=== PATIENT | female | born 1985 | race Caucasian/White ===

== ENCOUNTER 2016-11-13 23:19 | Emergency (ER) | payer SELFPAY ==
[~2016-11-13] VITALS: Ht 162.6 cm; Wt 145.6 kg
[~2016-11-13 23:19] MED LIST: CIPR500T94 PO; HYDR-971 PO; PROM25TA10 PO
[2016-11-13 23:28] VITALS: BP 142/66
[2016-11-13] MEDS ORDERED: LIDOCAINE 1% / SOD BICARB 8.4% 20 ML VIAL. IJ ONE ×2 (23:35→23:45)
--- NOTE | 2016-11-14 00:05 | PHYS DOC ---
Past Medical History Past Medical History: Other Additional Past Medical Histor: borderline anemic Past Surgical History: Cholecystectomy, , Tubal ligation Additional Information: nonsmoker Alcohol Use: None Drug Use: None Adult General Chief Complaint Chief Complaint: LACERATION/AVULSION HPI HPI Patient is a 31 year old female who presents with left hand laceration just prior to arrival. She was using scissors to do crafting when the scissors dropped. She reached down to catch the scissors and they cut her hand. Her tetanus immunization is up to date. She does not have a PCP. Review of Systems Review of Systems Constitutional: Denies fever or chills. [] Musculoskeletal: Denies back pain or joint pain. Reports left hand pain. Integument: Denies rash or skin lesions. Reports left hand laceration. Neurologic: Denies focal weakness or sensory changes. [] Current Medications Current Medications Current Medications Medications (Trade) Dose Ordered Sig/Loretta Start Time Stop Time Status Last Admin Dose Admin Lidocaine/Sodium Bicarbonate (Buffered Lidocaine 1%) 20 ml STK-MED ONCE 11/13/16 23:35 11/13/16 23:36 DC Allergies Allergies Allergies Coded Allergies Type Severity Reaction Last Updated Verified No Known Drug Allergies 01/19/15 No Physical Exam Physical Exam Constitutional: Well developed, well nourished, no acute distress, non-toxic appearance. [] HENT: Normocephalic, atraumatic, oropharynx moist. [] Eyes: PERRLA, EOMI, conjunctiva normal, no discharge. [] Skin: Warm, dry, no erythema, no rash. There is a 3cm laceration to the left thenar eminence of the left hand palmar surface. Extremities: Left hand thenar eminence tenderness, ROM intact, no edema. Less than 2 second capillary refill distally. Light touch sensation intact distally. Neurologic: Alert and oriented X 3, normal motor function, normal sensory function, no focal deficits noted. [] Psychologic: Affect normal, judgement normal, mood normal. [] Current Patient Data Vital Signs Vital Signs Date Time Temp Pulse Resp B/P Pulse Ox O2 Delivery O2 Flow Rate FiO2 11/13/16 23:28 98.0 88 18 96 Room Air 98.0 EKG EKG [] Radiology/Procedures Radiology/Procedures [] Course & Med Decision Making Course & Med Decision Making Pertinent Labs and Imaging studies reviewed. (See chart for details) Patient presents with a 3 cm laceration to the left hand thenar eminence on the palmar surface. The wound was anesthetized with 1% buffered lidocaine. The wound was explored for foreign bodies and none were identified. There was no tendon laceration. The wound was cleaned using chlorhexidine scrub and copiously irrigated using normal saline. Wound edges were well approximated using 6 simple interrupted sutures using 5-0 Nylon. The patient tolerated the procedure well and bleeding was controlled. A sterile dressing was applied. Dragon Disclaimer Dragon Disclaimer This electronic medical record was generated, in whole or in part, using a voice recognition dictation system. Departure Departure Impression: Primary Impression: Hand laceration Disposition: HOME, SELF-CARE Condition: IMPROVED Referrals: NO PCP (PCP) Patient Instructions: Sutured Wound Care, [id number] Additional Instructions: Your wound was closed with nonabsorbable sutures. The sutures may get wet but do not submerge the wound in water. Please clean the wound with soap and water. Do not use alcohol or peroxide, as they will delay the wound healing. Please keep the wound covered with antibiotic ointment and a bandage. Please follow up with a primary care provider in 10 days to have the sutures removed. Return to the emergency department if you have any new or concerning symptoms. Problem Qualifiers Primary Impression: Hand laceration Encounter type: initial encounter Laterality: left Qualified Code: S61.412A - Laceration without foreign body of left hand, initial encounter MONY JACOBO Nov 14, 2016 00:05
== END 2016-11-14 00:10 | disposition home or self-care (01) ==
LOC: ER 23:19
DX: S61.412A Laceration without foreign body of left hand, initial encounter (principal); W27.2XXA Contact with scissors, initial encounter; Y93.89 Activity, other specified; Y99.8 Other external cause status; Y92.89 Other specified places as the place of occurrence of the external cause
CPT/HCPCS: 12002; 99283-25

== ENCOUNTER 2017-01-08 11:53 | Emergency (ER) | payer SELFPAY ==
[~2017-01-08] VITALS: Ht 162.6 cm; Wt 146.5 kg
[2017-01-08 11:59] VITALS: BP 138/66
[2017-01-08] MEDS ORDERED: CEPH500T PO (12:36)
[2017-01-08] MEDS ORDERED: PRED20TA PO (12:36)
--- NOTE | 2017-01-08 12:37 | PHYS DOC ---
Past Medical History Past Medical History: Other Additional Past Medical Histor: borderline anemic Past Surgical History: Cholecystectomy, , Tubal ligation Alcohol Use: None Drug Use: None Adult General Chief Complaint Chief Complaint: SKIN RASH/ABSCESS [facility] HPI Patient is a 31 year old female presents to the emergency department with a history of rash for the last week. Patient states she has tried mask, hydrogen peroxide, oat meal baths, baking soda without relief. Patient states she now has two sores in the hair line of the left face. Patient states tetanus immunization is up to date. She denies fever, chills, nausea or vomiting. Review of Systems Review of Systems Constitutional: Denies fever or chills [] Eyes: Denies change in visual acuity, redness, or eye pain [] HENT: Denies nasal congestion or sore throat [] Respiratory: Denies cough or shortness of breath [] Cardiovascular: No additional information not addressed in HPI [] GI: Denies abdominal pain, nausea, vomiting, bloody stools or diarrhea [] : Denies dysuria or hematuria [] Musculoskeletal: Denies back pain or joint pain [] Integument: rash with 2 sores left hair line Neurologic: Denies headache, focal weakness or sensory changes [] Endocrine: Denies polyuria or polydipsia [] Allergies Allergies Allergies Coded Allergies Type Severity Reaction Last Updated Verified No Known Drug Allergies 01/19/15 No Physical Exam Physical Exam Constitutional: Well developed, well nourished, no acute distress, non-toxic appearance. [] HENT: Normocephalic, atraumatic, bilateral external ears normal, oropharynx moist, no oral exudates, nose normal. [] Eyes: PERRLA, EOMI, conjunctiva normal, no discharge. [] Neck: Normal range of motion, no tenderness, supple, no stridor. [] Cardiovascular:Heart rate regular rhythm, no murmur [] Lungs & Thorax: Bilateral breath sounds clear to auscultation [] Skin: Warm, dry, no erythema. Rash noted to the face that appears as pustules, patient with 2 sores noted to the hair line on the left upper forehead, no drainage or discharge noted. Back: No tenderness Extremities: No tenderness, no cyanosis, no clubbing, ROM intact, no edema. [] Neurologic: Alert and oriented X 3, normal motor function, normal sensory function, no focal deficits noted. [] Psychologic: Affect normal, judgement normal, mood normal. [] Current Patient Data Vital Signs Vital Signs Date Time Temp Pulse Resp B/P (MAP) Pulse Ox O2 Delivery O2 Flow Rate FiO2 01/08/17 11:59 98.0 84 18 98 Room Air 98.0 EKG EKG [] Radiology/Procedures Radiology/Procedures [] Course & Med Decision Making Course & Med Decision Making Pertinent Labs and Imaging studies reviewed. (See chart for details) Recommended that the patient keep the area clean and dry. Clean the site with soap and water twice a day. Also recommended Benadryl 25 mg 36 hours to help with itching and irritation. Patient will be placed on prednisone. Recommended patient to follow up with primary care physician in the next week. Patient will also be placed on Keflex for the sores that are on the upper part of the left head that appears to be scabbed over with redness noted around it. Patient agrees with discharge instructions treatment regimens and follow-up recommendations. Signs and symptoms to return back to emergency department as been provided. [] Dragon Disclaimer Dragon Disclaimer This electronic medical record was generated, in whole or in part, using a voice recognition dictation system. Departure Departure Impression: Primary Impression: Contact dermatitis Additional Impression: Wound infection Disposition: 01 HOME, SELF-CARE Condition: STABLE Referrals: TESS CORDOBA MD (PCP) Patient Instructions: Contact Dermatitis, [id number], Wound Infection, Easy- to-Read Additional Instructions: Activity as tolerated Medication as prescribed Benadryl 25 mg every 6 hours, this medication will cause drowsiness do not take if you need to be alert and oriented Keep the areas clean and dry Keep the areas cool to prevent irritation. Followup with primary care provider in 7-10 days Return to emergency department as needed for signs and symptoms that become worse. Scripts Prednisone (PREDNISONE) 20 Mg Tablet 40 MG PO DAILY for 7 Days, #14 TAB Prov: JIMENA URIBE APRN 01/08/17 Cephalexin (CEPHALEXIN) 500 Mg Tablet 1 TAB PO BID, #20 TAB Prov: JIMENA URIBE APRN 01/08/17 Problem Qualifiers JIMENA URIBE APRN Jan 08, 2017 12:36
== END 2017-01-08 12:45 | disposition home or self-care (01) ==
LOC: ER 11:53
DX: L25.9 Unspecified contact dermatitis, unspecified cause (principal); B99.8 Other infectious disease; Z90.49 Acquired absence of other specified parts of digestive tract; Z98.51 Tubal ligation status; Z98.890 Other specified postprocedural states
CPT/HCPCS: 99283

== ENCOUNTER 2017-10-24 15:16 | Emergency (ER) | payer OTHER | END 2017-10-24 16:40 | disposition home or self-care (01) | LOC: ER 15:16 | DX: S63.501A Unspecified sprain of right wrist, initial encounter (principal); W23.0XXA Caught, crushed, jammed, or pinched between moving objects, initial encounter; Y93.89 Activity, other specified; Y99.8 Other external cause status; Y92.89 Other specified places as the place of occurrence of the external cause | CPT/HCPCS: 29125; 73110; 99284-25 ==

== ENCOUNTER 2018-02-04 16:15 | Emergency (ER) | payer OTHER | END 2018-02-04 18:59 | disposition home or self-care (01) | LOC: ER 18:59 | DX: M25.561 Pain in right knee (principal) | CPT/HCPCS: 99282 ==